=== PATIENT | male | born 1940 | race Caucasian/White ===

== ENCOUNTER 2019-10-09 10:12 | Inpatient (IN) ==
[2019-10-09] MEDS ORDERED: ALBUTEROL/IPRATROPIUM 3 ML NEB RESP TX STA (10:35)
[2019-10-09 10:43] LABS: Basophils % 0.2 % (0.0-0.8); Hematocrit 37.4 VOL% (42.0-52.0); Hemoglobin 12.3 GM/DL (14.0-18.0); Immature Granulocytes % 1.2 %; Lymphocytes # 0.9 10*3/uL (1.4-4.0); Lymphocytes % 10.4 % (21.2-54.2); Mean Corpuscular HGB Conc 32.9 GM/DL (32-36); Mean Corpuscular Volume 95.4 FL (87-102); Mean Platelet Volume 11.9 FL (9.6-12.0); Monocytes % 9.3 % (1.7-12.7); Neutrophils % 78.9 % (38.7-73.9); Platelet Count 110 T/CUMM (130-400); Red Blood Count 3.92 MC/CUMM (3.8-5.5); Red Cell Distribution Width 14.4 % (9.3-17.3); White Blood Count 8.2 T/CUMM (4-12)
[2019-10-09 11:14] LABS: Albumin 2.8 G/DL (3.4-5.0); Bilirubin,Total 0.5 MG/DL (0.2-1.0); Calcium 8.1 MG/DL (8.5-10.1); Osmolality,Calculated 283.5 MOS/KG (273-304); Total Protein 5.9 G/DL (6.4-8.3)
[2019-10-09] MEDS ORDERED: cefTRIAXone 1,000 MG in SODIUM CHLORIDE 0.9% 100 ML IV STA (11:33)
[2019-10-09] MEDS ORDERED: GLUCAGON 1 MG VIAL IM PRN (12:28)
[2019-10-09] MEDS ORDERED: ACETAMINOPHEN 325 MG TABLET PO PRN (12:28)
[2019-10-09] MEDS ORDERED: DEXTROSE 50% 25 GM/50 ML VIAL IV PRN (12:28)
[2019-10-09] MEDS ORDERED: ONDANSETRON 4 MG/2 ML VIAL IV PRN (12:28)
[2019-10-09] MEDS ORDERED: ALBUTEROL/IPRATROPIUM 3 ML NEB RESP TX PRN (12:31)
[2019-10-09] MEDS: ALBUTEROL 2.5 MG/3 ML NEB RESP TX SCH ×3 (12:45→23:27)
[2019-10-09] MEDS ORDERED: BENZONATATE 100 MG CAPSULE PO PRN (13:58)
[2019-10-09] MEDS: methylPREDNISolone SOD SUC 40 MG/1 ML VIAL IV SCH (14:58)
[2019-10-09] MEDS: LEVOFLOXACIN INJ 750 MG in PREMIX 1 EACH IV SCH (15:02)
[2019-10-09] MEDS ORDERED: FUROSEMIDE 80 MG TABLET PO ONE (16:01)
[2019-10-09] MEDS: INSULIN REGULAR 100 UNIT/ML SUBCUT SCH ×2 (16:25→20:40)
[2019-10-09] MEDS ORDERED: ZALEPLON 5 MG CAPSULE PO PRN (18:11)
[2019-10-09] MEDS: DABIGATRAN 75 MG CAPSULE PO SCH (20:41)
[2019-10-09] MEDS: POTASSIUM CHLORIDE 20 MEQ TABLET PO SCH (20:41)
[2019-10-09] MEDS: TAMSULOSIN 0.4 MG CAPSULE PO SCH (20:41)
[2019-10-09] MEDS: GABAPENTIN 100 MG CAPSULE PO SCH (20:41)
[2019-10-09] MEDS: SIMVASTATIN 20 MG TABLET PO SCH (20:41)
[2019-10-09] MEDS: carvediloL 25 MG TABLET PO SCH (20:41)
[2019-10-09] MEDS: MAGNESIUM OXIDE 400 MG TABLET PO SCH (20:41)
[2019-10-10] MEDS: methylPREDNISolone SOD SUC 40 MG/1 ML VIAL IV SCH ×2 (01:59→15:31)
[2019-10-10 05:53] LABS: Hemoglobin 13.1 GM/DL (14.0-18.0); Immature Granulocytes % 0.9 %; Immature Granulocytes Absolute 0.07 #; Lymphocytes # 0.8 10*3/uL (1.4-4.0); Lymphocytes % 11.2 % (21.2-54.2); Mean Corpuscular HGB Conc 32.8 GM/DL (32-36); Mean Corpuscular Volume 95.9 FL (87-102); Mean Platelet Volume 11.8 FL (9.6-12.0); Monocytes % 5.6 % (1.7-12.7); Neutrophils % 82.3 % (38.7-73.9); Platelet Count 123 T/CUMM (130-400); Red Blood Count 4.17 MC/CUMM (3.8-5.5); Red Cell Distribution Width 14.3 % (9.3-17.3); White Blood Count 7.5 T/CUMM (4-12)
[2019-10-10] MEDS: ALBUTEROL 2.5 MG/3 ML NEB RESP TX SCH ×5 (07:13→23:52)
[2019-10-10] MEDS: INSULIN REGULAR 100 UNIT/ML SUBCUT SCH ×4 (08:01→21:34)
[2019-10-10] MEDS ORDERED: FUROSEMIDE 80 MG TABLET PO SCH (09:00)
[2019-10-10] MEDS: CALCIUM (CARBONATE)/VITAMIN D 600 MG-400 UNIT TABLET PO SCH ×2 (09:23→14:29)
[2019-10-10] MEDS: DABIGATRAN 75 MG CAPSULE PO SCH ×2 (09:23→21:33)
[2019-10-10] MEDS: carvediloL 25 MG TABLET PO SCH ×2 (09:23→21:34)
[2019-10-10] MEDS: POTASSIUM CHLORIDE 20 MEQ TABLET PO SCH ×2 (09:24→21:34)
[2019-10-10] MEDS: PANTOPRAZOLE 40 MG TABLET PO SCH (09:24)
[2019-10-10] MEDS: FUROSEMIDE 80 MG TABLET PO SCH ×2 (09:24→14:23)
[2019-10-10] MEDS: MAGNESIUM OXIDE 400 MG TABLET PO SCH ×2 (10:00→21:33)
[2019-10-10] MEDS: ASPIRIN 325 MG TABLET PO SCH (12:13)
[2019-10-10] MEDS: MULTIVITAMIN (INTRINSIC) CAPSULE PO SCH (12:13)
[2019-10-10 13:00] LABS: Apearance,Urine CLEAR (Clear); Bilirubin,Urine Negative (Negative); Blood, Urine Small mg/dL (Negative); Glucose,Urine (UA) Negative (Negative); Ketones,Urine Negative (Negative); Mucus,Urine Occasional /LPF (Occasional); Nitrite,Urine Negative (Negative); Protein,Urine Negative; RBC,Urine 8 /HPF (0-4); Urine Color Straw (Yellow); Urine Specific Gravity 1.009 (1.001-1.035); Urine Urobilinogen < 2.0 EU/DL (0.2-1.0); WBC,Urine 1 /HPF (0-6)
[2019-10-10] MEDS: GABAPENTIN 100 MG CAPSULE PO SCH (21:34)
[2019-10-10] MEDS: SIMVASTATIN 20 MG TABLET PO SCH (21:34)
[2019-10-10] MEDS: TAMSULOSIN 0.4 MG CAPSULE PO SCH (21:34)
[2019-10-11] MEDS: methylPREDNISolone SOD SUC 40 MG/1 ML VIAL IV SCH (02:59)
[2019-10-11] MEDS: ALBUTEROL 2.5 MG/3 ML NEB RESP TX SCH ×6 (03:36→22:32)
[2019-10-11 06:15] LABS: Calcium 9.1 MG/DL (8.5-10.1)
[2019-10-11] MEDS: CALCIUM (CARBONATE)/VITAMIN D 600 MG-400 UNIT TABLET PO SCH ×2 (08:28→12:47)
[2019-10-11] MEDS: MAGNESIUM OXIDE 400 MG TABLET PO SCH ×2 (08:28→21:32)
[2019-10-11] MEDS: PANTOPRAZOLE 40 MG TABLET PO SCH (08:29)
[2019-10-11] MEDS: INSULIN REGULAR 100 UNIT/ML SUBCUT SCH ×4 (08:29→21:36)
[2019-10-11] MEDS: DABIGATRAN 75 MG CAPSULE PO SCH ×2 (08:29→21:32)
[2019-10-11] MEDS: predniSONE 10 MG TABLET PO SCH ×2 (08:29→21:33)
[2019-10-11] MEDS: FUROSEMIDE 80 MG TABLET PO SCH ×2 (08:29→12:47)
[2019-10-11] MEDS: POTASSIUM CHLORIDE 20 MEQ TABLET PO SCH ×2 (08:29→21:32)
[2019-10-11] MEDS: carvediloL 25 MG TABLET PO SCH ×2 (08:29→21:32)
[2019-10-11] MEDS: ASPIRIN 325 MG TABLET PO SCH (12:47)
[2019-10-11] MEDS: MULTIVITAMIN (INTRINSIC) CAPSULE PO SCH (12:47)
[2019-10-11] MEDS: LEVOFLOXACIN INJ 750 MG in PREMIX 1 EACH IV SCH (14:37)
[2019-10-11] MEDS: TAMSULOSIN 0.4 MG CAPSULE PO SCH (21:32)
[2019-10-11] MEDS: GABAPENTIN 100 MG CAPSULE PO SCH (21:33)
[2019-10-11] MEDS: SIMVASTATIN 20 MG TABLET PO SCH (21:33)
[2019-10-12] MEDS: ALBUTEROL 2.5 MG/3 ML NEB RESP TX SCH ×2 (02:30→07:12)
[2019-10-12 07:48] VITALS: BP 119/72
[2019-10-12] MEDS: INSULIN REGULAR 100 UNIT/ML SUBCUT SCH (10:00)
[2019-10-12] MEDS: CALCIUM (CARBONATE)/VITAMIN D 600 MG-400 UNIT TABLET PO SCH (10:01)
[2019-10-12] MEDS: carvediloL 25 MG TABLET PO SCH (10:01)
[2019-10-12] MEDS: POTASSIUM CHLORIDE 20 MEQ TABLET PO SCH (10:01)
[2019-10-12] MEDS: MAGNESIUM OXIDE 400 MG TABLET PO SCH (10:01)
[2019-10-12] MEDS: FUROSEMIDE 80 MG TABLET PO SCH (10:01)
[2019-10-12] MEDS: DABIGATRAN 75 MG CAPSULE PO SCH (10:02)
[2019-10-12] MEDS: PANTOPRAZOLE 40 MG TABLET PO SCH (10:02)
[2019-10-12] MEDS: predniSONE 10 MG TABLET PO SCH (10:02)
== END 2019-10-12 09:56 | disposition home health service (06) | DRG 194 ==
LOC: N.ED 10:12 → N.EDINP 10:12 → SUATTDRO 12:28 → N.EDINP 13:52 → N.2W 14:18 → N.2E 10-10 18:16
PROVIDERS: ADMIT Internal Medicine; ATTEND Internal Medicine Cardiovascular Disease

== ENCOUNTER 2021-05-17 10:01 | Inpatient (IN) ==
[2021-05-17] MEDS ORDERED: FUROSEMIDE 100 MG/10 ML VIAL IV STA (10:40)
[2021-05-17] MEDS ORDERED: MORPHINE 4 MG/1 ML VIAL IV STA (10:40)
[2021-05-17] MEDS ORDERED: DEXAMETHASONE 4 MG/1 ML VIAL IV STA (10:41)
[2021-05-17 11:31] LABS: Basophils % 0.3 % (0.0-0.8); Hematocrit 36.6 VOL% (42.0-52.0); Hemoglobin 12.5 GM/DL (14.0-18.0); Immature Granulocytes % 0.7 %; Immature Granulocytes Absolute 0.08 #; Lymphocytes # 1.2 10*3/uL (1.4-4.0); Lymphocytes % 10.4 % (21.2-54.2); Mean Corpuscular HGB Conc 34.2 GM/DL (32-36); Mean Corpuscular Volume 87.6 FL (87-102); Mean Platelet Volume 10.6 FL (9.6-12.0); Monocytes % 8.6 % (1.7-12.7); Platelet Count 255 T/CUMM (130-400); Red Blood Count 4.18 MC/CUMM (3.8-5.5); Red Cell Distribution Width 13.1 % (9.3-17.3); White Blood Count 11.8 T/CUMM (4-12)
[2021-05-17 12:00] LABS: Uric Acid 13.8 MG/DL (3.5-7.2)
[2021-05-17 12:50] LABS: Albumin 2.7 G/DL (3.4-5.0); Bilirubin,Total 0.9 MG/DL (0.2-1.0); Calcium 9.3 MG/DL (8.5-10.1); Osmolality,Calculated 274.1 MOS/KG (273-304); Potassium 2.8 MMOL/L (3.5-5.1); Total Protein 6.7 G/DL (6.4-8.2)
[2021-05-17] MEDS ORDERED: COLCHICINE 0.6 MG CAPSULE PO STA (13:37)
[2021-05-17] MEDS ORDERED: ALBUMIN 25% 25 GM/100 ML VIAL IV ONE (14:17)
[2021-05-17] MEDS: allopurinoL 100 MG TABLET PO SCH (14:35)
[2021-05-17] MEDS ORDERED: ONDANSETRON 4 MG/2 ML VIAL IV PRN (14:44)
[2021-05-17] MEDS ORDERED: ACETAMINOPHEN 325 MG TABLET PO PRN (14:44)
[2021-05-17] MEDS: POTASSIUM CHLORIDE 20 MEQ TABLET PO PRN ×4 (17:17→23:24)
[2021-05-17] MEDS: SODIUM CHLORIDE 0.9% 1,000 ML IV SCH (18:12)
[2021-05-17] MEDS: GABAPENTIN 100 MG CAPSULE PO SCH (20:56)
[2021-05-17] MEDS: DABIGATRAN 75 MG CAPSULE PO SCH (20:56)
[2021-05-17] MEDS: MAGNESIUM OXIDE 400 MG TABLET PO SCH (20:56)
[2021-05-17] MEDS: SIMVASTATIN 20 MG TABLET PO SCH (20:56)
[2021-05-17] MEDS: DOCUSATE SODIUM 100 MG CAPSULE PO SCH (20:56)
[2021-05-17] MEDS: TAMSULOSIN 0.4 MG CAPSULE PO SCH (20:56)
[2021-05-17] MEDS ORDERED: NON-FORMULARY MEDICATION (Omeprazole 20 MG capsule,delayed release(DR/EC)) PO SCH (21:00)
[2021-05-18 04:49] LABS: Basophils % 0.2 % (0.0-0.8); Hematocrit 33.2 VOL% (42.0-52.0); Hemoglobin 11.2 GM/DL (14.0-18.0); Immature Granulocytes % 0.7 %; Immature Granulocytes Absolute 0.08 #; Lymphocytes % 9.3 % (21.2-54.2); Mean Corpuscular HGB Conc 33.7 GM/DL (32-36); Mean Corpuscular Volume 88.3 FL (87-102); Mean Platelet Volume 11.2 FL (9.6-12.0); Monocytes % 6.5 % (1.7-12.7); Neutrophils % 83.3 % (38.7-73.9); Platelet Count 261 T/CUMM (130-400); Red Blood Count 3.76 MC/CUMM (3.8-5.5); Red Cell Distribution Width 12.8 % (9.3-17.3); White Blood Count 10.8 T/CUMM (4-12)
[2021-05-18 05:11] LABS: Calcium 9.3 MG/DL (8.5-10.1); Osmolality,Calculated 285.9 MOS/KG (273-304); Potassium 2.9 MMOL/L (3.5-5.1)
[2021-05-18] MEDS ORDERED: allopurinoL 100 MG TABLET PO SCH (09:00)
[2021-05-18] MEDS: DABIGATRAN 75 MG CAPSULE PO SCH ×2 (09:08→21:11)
[2021-05-18] MEDS: MULTIVITAMIN (INTRINSIC) CAPSULE PO SCH (09:08)
[2021-05-18] MEDS: MAGNESIUM OXIDE 400 MG TABLET PO SCH ×2 (09:08→21:12)
[2021-05-18] MEDS: POTASSIUM CHLORIDE 20 MEQ TABLET PO SCH (09:08)
[2021-05-18] MEDS: COLCHICINE 0.6 MG CAPSULE PO SCH (09:08)
[2021-05-18] MEDS: allopurinoL 100 MG TABLET PO SCH (09:09)
[2021-05-18] MEDS: CALCIUM (CARBONATE)/VITAMIN D 600 MG-400 UNIT TABLET PO SCH (09:09)
[2021-05-18] MEDS: PANTOPRAZOLE 40 MG TABLET PO SCH (09:09)
[2021-05-18] MEDS: GLIMEPIRIDE 2 MG TABLET PO SCH (09:09)
[2021-05-18] MEDS: DOCUSATE SODIUM 100 MG CAPSULE PO SCH ×2 (09:09→21:12)
[2021-05-18] MEDS: ASPIRIN EC 81 MG TABLET PO SCH (09:09)
[2021-05-18] MEDS: GABAPENTIN 100 MG CAPSULE PO SCH ×2 (09:09→21:12)
[2021-05-18] MEDS: METOPROLOL SUCCINATE XL 100 MG TABLET PO SCH (09:09)
[2021-05-18] MEDS: POTASSIUM CHLORIDE 20 MEQ TABLET PO PRN ×3 (10:15→21:12)
[2021-05-18] MEDS: SODIUM CHLORIDE 0.9% 1,000 ML IV SCH (15:40)
[2021-05-18] MEDS: SIMVASTATIN 20 MG TABLET PO SCH (21:12)
[2021-05-18] MEDS: TAMSULOSIN 0.4 MG CAPSULE PO SCH (21:12)
[2021-05-19 04:45] LABS: Basophils % 0.3 % (0.0-0.8); Eosinophils % 0.2 % (0.00-10.9); Hematocrit 31.6 VOL% (42.0-52.0); Hemoglobin 10.7 GM/DL (14.0-18.0); Immature Granulocytes % 0.9 %; Lymphocytes # 2.4 10*3/uL (1.4-4.0); Lymphocytes % 22.4 % (21.2-54.2); Mean Corpuscular HGB Conc 33.9 GM/DL (32-36); Mean Corpuscular Volume 88.5 FL (87-102); Monocytes % 8.9 % (1.7-12.7); Neutrophils % 67.3 % (38.7-73.9); Platelet Count 249 T/CUMM (130-400); Red Blood Count 3.57 MC/CUMM (3.8-5.5); Red Cell Distribution Width 12.9 % (9.3-17.3); White Blood Count 10.9 T/CUMM (4-12)
[2021-05-19 05:14] LABS: Calcium 8.9 MG/DL (8.5-10.1); Osmolality,Calculated 286.1 MOS/KG (273-304)
[2021-05-19 07:24] VITALS: BP 100/69
[2021-05-19] MEDS: CALCIUM (CARBONATE)/VITAMIN D 600 MG-400 UNIT TABLET PO SCH (08:23)
[2021-05-19] MEDS: GABAPENTIN 100 MG CAPSULE PO SCH (08:24)
[2021-05-19] MEDS: MULTIVITAMIN (INTRINSIC) CAPSULE PO SCH (08:24)
[2021-05-19] MEDS: DABIGATRAN 75 MG CAPSULE PO SCH (08:24)
[2021-05-19] MEDS: ASPIRIN EC 81 MG TABLET PO SCH (08:24)
[2021-05-19] MEDS: COLCHICINE 0.6 MG CAPSULE PO SCH (08:24)
[2021-05-19] MEDS: MAGNESIUM OXIDE 400 MG TABLET PO SCH (08:24)
[2021-05-19] MEDS: DOCUSATE SODIUM 100 MG CAPSULE PO SCH (08:24)
[2021-05-19] MEDS: GLIMEPIRIDE 2 MG TABLET PO SCH (08:24)
[2021-05-19] MEDS: POTASSIUM CHLORIDE 20 MEQ TABLET PO SCH (08:24)
[2021-05-19] MEDS: allopurinoL 100 MG TABLET PO SCH (08:24)
[2021-05-19] MEDS: METOPROLOL SUCCINATE XL 100 MG TABLET PO SCH (08:25)
[2021-05-19] MEDS: PANTOPRAZOLE 40 MG TABLET PO SCH (08:25)
== END 2021-05-19 09:38 | disposition home or self-care (01) | DRG 554 ==
LOC: EDBD → EDUNIT# → N.ED 10:01 → N.EDINP 14:44 → N.5E 15:55
PROVIDERS: ADMIT Family Medicine; ATTEND Family Medicine

== ENCOUNTER 2022-05-21 10:09 | Inpatient (IN) ==
[2022-05-21] MEDS ORDERED: SODIUM CHLORIDE 0.9% 500 ML IV STA (10:30)
[2022-05-21 10:44] LABS: Basophils % 0.3 % (0.0-0.8); Hematocrit 38.7 VOL% (42.0-52.0); Hemoglobin 13.4 GM/DL (14.0-18.0); Immature Granulocytes % 0.6 %; Immature Granulocytes Absolute 0.04 #; Lymphocytes # 0.4 10*3/uL (1.4-4.0); Mean Corpuscular HGB Conc 34.6 GM/DL (32-36); Mean Corpuscular Volume 89.4 FL (87-102); Mean Platelet Volume 12.4 FL (9.6-12.0); Monocytes # 0.7 10*3/uL (0.11-0.8); Monocytes % 11.7 % (1.7-12.7); Neutrophils % 81.4 % (38.7-73.9); Platelet Count 115 T/CUMM (130-400); Red Blood Count 4.33 MC/CUMM (3.8-5.5); Red Cell Distribution Width 12.8 % (9.3-17.3); White Blood Count 6.4 T/CUMM (4-12)
[2022-05-21 10:48] LABS: Albumin 2.7 G/DL (3.4-5.0); Bilirubin,Total 0.7 MG/DL (0.20-1.00); Calcium 8.9 MG/DL (8.5-10.1); Osmolality,Calculated 274.8 MOS/KG (273-304); Total Protein 6.4 G/DL (6.4-8.2)
[2022-05-21 10:49] LABS: PT Patient Result 10.6 SECS (10.5-12.0); Partial Thromboplastin Time 28.2 SECS (23.7-32.9)
[2022-05-21 10:51] LABS: Potassium 2.5 MMOL/L (3.5-5.1)
[2022-05-21] MEDS: POTASSIUM CHLORIDE RIDER 10 MEQ/100 ML PREMIX IV PRN ×2 (12:04→13:07)
[2022-05-21 12:22] LABS: Bacteria,Urine Occasional /HPF (Few); RBC,Urine 124 /HPF (0-4); Squamous Epithelial Cell,Urine Occasional /HPF (0-10)
[2022-05-21 12:23] LABS: Bilirubin,Urine Negative (Negative); Blood, Urine Large mg/dL (Negative); Glucose,Urine (UA) Negative (Negative); Ketones,Urine Negative (Negative); Nitrite,Urine Negative (Negative); Protein,Urine 100 mg/dL (Negative); Urine Appearance Clear (Clear); Urine Color Yellow (Yellow); Urine Urobilinogen 0.2 eU/dL (<2.0)
[2022-05-21] MEDS ORDERED: cefTRIAXone 1,000 MG in SODIUM CHLORIDE 0.9% 100 ML IV STA (15:13)
[2022-05-21] MEDS ORDERED: ONDANSETRON 4 MG/2 ML VIAL IV PRN (15:34)
[2022-05-21] MEDS ORDERED: ACETAMINOPHEN 325 MG TABLET PO PRN (15:34)
[2022-05-21] MEDS: SODIUM CHLORIDE 0.9% 1,000 ML IV SCH (16:34)
[2022-05-21] MEDS ORDERED: metOLazone 5 MG TABLET PO PRN (16:53)
[2022-05-21] MEDS ORDERED: GLUCAGON 1 MG VIAL IM PRN (16:55)
[2022-05-21] MEDS ORDERED: DEXTROSE 10% 250 ML BAG IV PRN (17:09)
[2022-05-21] MEDS ORDERED: NON-FORMULARY MEDICATION (Omeprazole 20 MG capsule,delayed release(DR/EC)) PO SCH (21:00)
[2022-05-21] MEDS: TAMSULOSIN 0.4 MG CAPSULE PO SCH (21:30)
[2022-05-21] MEDS: DOCUSATE SODIUM 100 MG CAPSULE PO SCH (21:30)
[2022-05-21] MEDS: INSULIN REGULAR 100 UNIT/ML SUBCUT SCH (21:30)
[2022-05-21] MEDS: PRIMIDONE 50 MG TABLET PO SCH (21:30)
[2022-05-21] MEDS: SIMVASTATIN 20 MG TABLET PO SCH (21:30)
[2022-05-21] MEDS: GABAPENTIN 100 MG CAPSULE PO SCH (21:30)
[2022-05-22] MEDS: SODIUM CHLORIDE 0.9% 1,000 ML IV SCH ×2 (00:30→14:02)
[2022-05-22 06:26] LABS: Calcium 8.5 MG/DL (8.5-10.1); Osmolality,Calculated 271.5 MOS/KG (273-304)
[2022-05-22 06:30] LABS: Potassium 2.3 MMOL/L (3.5-5.1)
[2022-05-22] MEDS: POTASSIUM CHLORIDE RIDER 10 MEQ/100 ML PREMIX IV PRN ×8 (06:43→23:20)
[2022-05-22] MEDS: INSULIN REGULAR 100 UNIT/ML SUBCUT SCH ×4 (07:58→21:19)
[2022-05-22] MEDS ORDERED: FUROSEMIDE 40 MG/4 ML VIAL IV SCH (09:00)
[2022-05-22] MEDS ORDERED: POTASSIUM CHLORIDE 20 MEQ TABLET PO SCH (09:00)
[2022-05-22] MEDS ORDERED: MAGNESIUM OXIDE 400 MG TABLET PO SCH (09:00)
[2022-05-22] MEDS: PANTOPRAZOLE 40 MG TABLET PO SCH (10:00)
[2022-05-22] MEDS: GABAPENTIN 100 MG CAPSULE PO SCH ×2 (10:00→21:22)
[2022-05-22] MEDS: METOPROLOL SUCCINATE XL 100 MG TABLET PO SCH (10:00)
[2022-05-22] MEDS: PRIMIDONE 50 MG TABLET PO SCH ×2 (10:01→21:22)
[2022-05-22] MEDS: DOCUSATE SODIUM 100 MG CAPSULE PO SCH ×2 (10:02→21:22)
[2022-05-22] MEDS ORDERED: POTASSIUM CHLORIDE 20 MEQ TABLET PO ONE (11:00)
[2022-05-22] MEDS: ASPIRIN EC 81 MG TABLET PO SCH (15:01)
[2022-05-22] MEDS: cefTRIAXone 1,000 MG in SODIUM CHLORIDE 0.9% 100 ML IV SCH (15:03)
[2022-05-22] MEDS: DILTIAZEM 60 MG TABLET PO SCH ×2 (18:22→21:21)
[2022-05-22] MEDS: TAMSULOSIN 0.4 MG CAPSULE PO SCH (21:22)
[2022-05-22] MEDS: SIMVASTATIN 20 MG TABLET PO SCH (21:22)
[2022-05-22] MEDS: MELATONIN 3 MG TABLET PO PRN (22:37)
[2022-05-23] MEDS: SODIUM CHLORIDE 0.9% 1,000 ML IV SCH ×3 (02:24→18:32)
[2022-05-23 05:57] LABS: Basophils % 0.5 % (0.0-0.8); Eosinophils % 0.1 % (0.00-10.9); Hematocrit 33.4 VOL% (42.0-52.0); Immature Granulocytes % 0.4 %; Immature Granulocytes Absolute 0.03 #; Lymphocytes # 1.2 10*3/uL (1.4-4.0); Mean Corpuscular HGB Conc 34.1 GM/DL (32-36); Mean Platelet Volume 11.9 FL (9.6-12.0); Monocytes # 1.2 10*3/uL (0.11-0.8); Monocytes % 16.5 % (1.7-12.7); Neutrophils % 66.5 % (38.7-73.9); Red Cell Distribution Width 13.3 % (9.3-17.3); White Blood Count 7.3 T/CUMM (4-12)
[2022-05-23 06:00] LABS: Hemoglobin 11.4 GM/DL (14.0-18.0); Platelet Count 99 T/CUMM (130-400); Red Blood Count 3.63 MC/CUMM (3.8-5.5)
[2022-05-23 06:18] LABS: Atypical Lymphocytes Few; Band Neutrophils 8 % (0-10); Lymphocytes 21 % (20-55); Total Cells Counted 100
[2022-05-23 06:29] LABS: Albumin 2.4 G/DL (3.4-5.0); Bilirubin,Total 0.5 MG/DL (0.20-1.00); Calcium 8.2 MG/DL (8.5-10.1); Osmolality,Calculated 268.7 MOS/KG (273-304); Potassium 3.1 MMOL/L (3.5-5.1); Total Protein 5.3 G/DL (6.4-8.2)
[2022-05-23] MEDS ORDERED: MAGNESIUM SULF RIDER 2 GM/50 ML PREMIX IV ONE (07:12)
[2022-05-23] MEDS ORDERED: POTASSIUM CHLORIDE 20 MEQ TABLET PO ONE ×3 (08:30→10:00)
[2022-05-23] MEDS ORDERED: POTASSIUM CHLORIDE 20 MEQ TABLET PO SCH (09:00)
[2022-05-23] MEDS: MAGNESIUM OXIDE 400 MG TABLET PO SCH ×2 (09:15→22:28)
[2022-05-23] MEDS: PRIMIDONE 50 MG TABLET PO SCH ×2 (09:15→22:22)
[2022-05-23] MEDS: POTASSIUM CHLORIDE 20 MEQ TABLET PO SCH ×2 (09:16→22:27)
[2022-05-23] MEDS: ASCORBIC ACID 500 MG TABLET PO SCH ×2 (09:16→22:23)
[2022-05-23] MEDS: METOPROLOL SUCCINATE XL 100 MG TABLET PO SCH (09:17)
[2022-05-23] MEDS: GABAPENTIN 100 MG CAPSULE PO SCH ×2 (09:17→22:23)
[2022-05-23] MEDS: DILTIAZEM CD 120 MG CAPSULE PO SCH ×2 (09:17→22:22)
[2022-05-23] MEDS: DOCUSATE SODIUM 100 MG CAPSULE PO SCH ×2 (09:17→22:22)
[2022-05-23] MEDS: INSULIN REGULAR 100 UNIT/ML SUBCUT SCH ×4 (09:18→22:24)
[2022-05-23] MEDS: PANTOPRAZOLE 40 MG TABLET PO SCH (13:24)
[2022-05-23] MEDS: ASPIRIN EC 81 MG TABLET PO SCH (13:33)
[2022-05-23] MEDS: cefTRIAXone 1,000 MG in SODIUM CHLORIDE 0.9% 100 ML IV SCH (16:26)
[2022-05-23] MEDS: MELATONIN 3 MG TABLET PO PRN (22:21)
[2022-05-23] MEDS: TAMSULOSIN 0.4 MG CAPSULE PO SCH (22:22)
[2022-05-23] MEDS: SIMVASTATIN 20 MG TABLET PO SCH (22:24)
[2022-05-24] MEDS: SODIUM CHLORIDE 0.9% 1,000 ML IV SCH (04:19)
[2022-05-24 05:22] LABS: Basophils % 0.3 % (0.0-0.8); Eosinophils % 0.2 % (0.00-10.9); Hematocrit 32.7 VOL% (42.0-52.0); Hemoglobin 11.2 GM/DL (14.0-18.0); Immature Granulocytes % 0.7 %; Immature Granulocytes Absolute 0.06 #; Lymphocytes # 1.2 10*3/uL (1.4-4.0); Mean Corpuscular HGB Conc 34.3 GM/DL (32-36); Mean Corpuscular Volume 92.6 FL (87-102); Mean Platelet Volume 12.8 FL (9.6-12.0); Monocytes # 1.5 10*3/uL (0.11-0.8); Neutrophils % 69.8 % (38.7-73.9); Platelet Count 102 T/CUMM (130-400); Red Blood Count 3.53 MC/CUMM (3.8-5.5); Red Cell Distribution Width 13.4 % (9.3-17.3); White Blood Count 9.1 T/CUMM (4-12)
[2022-05-24 05:37] LABS: Calcium 8.1 MG/DL (8.5-10.1); Osmolality,Calculated 265.7 MOS/KG (273-304); Potassium 3.7 MMOL/L (3.5-5.1)
[2022-05-24 05:44] LABS: Band Neutrophils 3 % (0-10); Lymphocytes 13 % (20-55); Microcytosis Slight; Platelet Estimate Decreased; Total Cells Counted 100
[2022-05-24] MEDS: INSULIN REGULAR 100 UNIT/ML SUBCUT SCH ×4 (07:50→20:53)
[2022-05-24] MEDS: METOPROLOL SUCCINATE XL 100 MG TABLET PO SCH (08:37)
[2022-05-24] MEDS: PRIMIDONE 50 MG TABLET PO SCH ×2 (08:39→20:52)
[2022-05-24] MEDS: GABAPENTIN 100 MG CAPSULE PO SCH ×2 (08:41→20:39)
[2022-05-24] MEDS: PANTOPRAZOLE 40 MG TABLET PO SCH (08:42)
[2022-05-24] MEDS: DILTIAZEM CD 120 MG CAPSULE PO SCH ×2 (08:43→20:38)
[2022-05-24] MEDS: DOCUSATE SODIUM 100 MG CAPSULE PO SCH ×2 (08:44→20:39)
[2022-05-24] MEDS: POTASSIUM CHLORIDE 20 MEQ TABLET PO SCH ×2 (08:45→20:39)
[2022-05-24] MEDS: MAGNESIUM OXIDE 400 MG TABLET PO SCH ×2 (08:45→20:38)
[2022-05-24] MEDS: ASCORBIC ACID 500 MG TABLET PO SCH ×2 (08:46→20:38)
[2022-05-24] MEDS: ENOXAPARIN 100 MG/ML SYRINGE SUBCUT SCH ×2 (08:51→20:41)
[2022-05-24] MEDS ORDERED: FUROSEMIDE 80 MG TABLET PO SCH (09:00)
[2022-05-24] MEDS: ALBUTEROL 0.63 MG/3 ML NEB RESP TX SCH ×3 (10:45→19:05)
[2022-05-24] MEDS ORDERED: DEXTROMETHORPHAN ER 6 MG/ML 90 ML/BOTTLE PO PRN (12:36)
[2022-05-24] MEDS: ASPIRIN EC 81 MG TABLET PO SCH (14:22)
[2022-05-24] MEDS ORDERED: METOPROLOL TARTRATE 5 MG/5 ML VIAL IV ONE (15:25)
[2022-05-24] MEDS: cefTRIAXone 1,000 MG in SODIUM CHLORIDE 0.9% 100 ML IV SCH (15:59)
[2022-05-24] MEDS: FUROSEMIDE 80 MG TABLET PO SCH (16:00)
[2022-05-24] MEDS ORDERED: FUROSEMIDE 40 MG/4 ML VIAL IV ONE (20:02)
[2022-05-24] MEDS: SIMVASTATIN 20 MG TABLET PO SCH (20:39)
[2022-05-24] MEDS: TAMSULOSIN 0.4 MG CAPSULE PO SCH (20:39)
[2022-05-24] MEDS: MORPHINE 2 MG/1 ML SYRINGE IV PRN (20:41)
[2022-05-25] MEDS: ALBUTEROL 0.63 MG/3 ML NEB RESP TX SCH ×4 (00:20→19:40)
[2022-05-25] MEDS: SODIUM CHLORIDE 0.9% 1,000 ML IV SCH (02:29)
[2022-05-25 05:17] LABS: Calcium 8.4 MG/DL (8.5-10.1); Osmolality,Calculated 261.9 MOS/KG (273-304); Potassium 3.5 MMOL/L (3.5-5.1)
[2022-05-25] MEDS: INSULIN REGULAR 100 UNIT/ML SUBCUT SCH ×4 (07:03→20:42)
[2022-05-25] MEDS ORDERED: DIGOXIN 0.5 MG/2 ML AMP IV ONE (08:39)
[2022-05-25] MEDS ORDERED: MAGNESIUM SULF RIDER 4 GM/100 ML PREMIX IV ONE (08:39)
[2022-05-25 08:56] LABS: Basophils % 0.4 % (0.0-0.8); Eosinophils % 0.3 % (0.00-10.9); Hematocrit 36.1 VOL% (42.0-52.0); Hemoglobin 12.2 GM/DL (14.0-18.0); Immature Granulocytes % 0.8 %; Immature Granulocytes Absolute 0.09 #; Lymphocytes # 1.5 10*3/uL (1.4-4.0); Lymphocytes % 13.1 % (21.2-54.2); Mean Corpuscular HGB Conc 33.8 GM/DL (32-36); Mean Corpuscular Volume 92.3 FL (87-102); Mean Platelet Volume 12.7 FL (9.6-12.0); Monocytes # 1.9 10*3/uL (0.11-0.8); Neutrophils % 68.4 % (38.7-73.9); Platelet Count 108 T/CUMM (130-400); Red Blood Count 3.91 MC/CUMM (3.8-5.5); Red Cell Distribution Width 13.8 % (9.3-17.3); White Blood Count 11.2 T/CUMM (4-12)
[2022-05-25 09:17] LABS: Lymphocytes 12 % (20-55); Total Cells Counted 100
[2022-05-25] MEDS: PRIMIDONE 50 MG TABLET PO SCH ×2 (09:18→20:41)
[2022-05-25] MEDS: APIXABAN 2.5 MG TABLET PO SCH ×2 (09:32→20:41)
[2022-05-25] MEDS: PANTOPRAZOLE 40 MG TABLET PO SCH (09:32)
[2022-05-25] MEDS: DOCUSATE SODIUM 100 MG CAPSULE PO SCH ×2 (09:33→20:41)
[2022-05-25] MEDS: GABAPENTIN 100 MG CAPSULE PO SCH ×2 (09:33→20:42)
[2022-05-25] MEDS: POTASSIUM CHLORIDE 20 MEQ TABLET PO SCH ×2 (09:34→20:41)
[2022-05-25] MEDS: MAGNESIUM OXIDE 400 MG TABLET PO SCH ×2 (09:38→20:42)
[2022-05-25] MEDS: FUROSEMIDE 80 MG TABLET PO SCH ×2 (09:38→16:39)
[2022-05-25] MEDS: DILTIAZEM CD 120 MG CAPSULE PO SCH ×2 (09:39→20:42)
[2022-05-25] MEDS: METOPROLOL SUCCINATE XL 100 MG TABLET PO SCH (09:40)
[2022-05-25] MEDS: ASCORBIC ACID 500 MG TABLET PO SCH ×2 (09:40→20:41)
[2022-05-25] MEDS: CLINDAMYCIN INJ 600 MG/50 ML PREMIX IV SCH ×2 (09:46→18:27)
[2022-05-25] MEDS: ASPIRIN EC 81 MG TABLET PO SCH (13:43)
[2022-05-25] MEDS: cefTRIAXone 1,000 MG in SODIUM CHLORIDE 0.9% 100 ML IV SCH (16:38)
[2022-05-25] MEDS: SIMVASTATIN 20 MG TABLET PO SCH (20:41)
[2022-05-25] MEDS: TAMSULOSIN 0.4 MG CAPSULE PO SCH (20:42)
[2022-05-26] MEDS: CLINDAMYCIN INJ 600 MG/50 ML PREMIX IV SCH ×3 (01:28→17:31)
[2022-05-26] MEDS: MORPHINE 2 MG/1 ML SYRINGE IV PRN (04:10)
[2022-05-26 04:18] LABS: Basophils % 0.2 % (0.0-0.8); Eosinophils # 0.2 10*3/uL (0.0-0.87); Eosinophils % 1.7 % (0.00-10.9); Hematocrit 29.8 VOL% (42.0-52.0); Hemoglobin 10.2 GM/DL (14.0-18.0); Immature Granulocytes % 0.7 %; Immature Granulocytes Absolute 0.07 #; Lymphocytes # 1.5 10*3/uL (1.4-4.0); Lymphocytes % 15.2 % (21.2-54.2); Mean Corpuscular HGB Conc 34.2 GM/DL (32-36); Mean Corpuscular Volume 91.7 FL (87-102); Mean Platelet Volume 12.5 FL (9.6-12.0); Monocytes # 1.3 10*3/uL (0.11-0.8); Monocytes % 13.5 % (1.7-12.7); Neutrophils % 68.7 % (38.7-73.9); Platelet Count 119 T/CUMM (130-400); Red Blood Count 3.25 MC/CUMM (3.8-5.5); Red Cell Distribution Width 13.5 % (9.3-17.3); White Blood Count 9.9 T/CUMM (4-12)
[2022-05-26 04:43] LABS: Osmolality,Calculated 269.5 MOS/KG (273-304); Potassium 3.6 MMOL/L (3.5-5.1)
[2022-05-26] MEDS: ALBUTEROL 0.63 MG/3 ML NEB RESP TX SCH ×2 (07:20→19:37)
[2022-05-26] MEDS: INSULIN REGULAR 100 UNIT/ML SUBCUT SCH ×4 (07:52→20:34)
[2022-05-26] MEDS: DILTIAZEM CD 120 MG CAPSULE PO SCH ×2 (08:48→20:33)
[2022-05-26] MEDS: MAGNESIUM OXIDE 400 MG TABLET PO SCH ×2 (08:48→20:33)
[2022-05-26] MEDS: APIXABAN 2.5 MG TABLET PO SCH ×2 (08:48→20:33)
[2022-05-26] MEDS: FUROSEMIDE 80 MG TABLET PO SCH ×2 (08:48→15:23)
[2022-05-26] MEDS: ASCORBIC ACID 500 MG TABLET PO SCH ×2 (08:48→20:33)
[2022-05-26] MEDS: METOPROLOL SUCCINATE XL 100 MG TABLET PO SCH (08:48)
[2022-05-26] MEDS: DOCUSATE SODIUM 100 MG CAPSULE PO SCH ×2 (08:48→20:33)
[2022-05-26] MEDS: PRIMIDONE 50 MG TABLET PO SCH ×2 (08:48→20:33)
[2022-05-26] MEDS: GABAPENTIN 100 MG CAPSULE PO SCH ×2 (08:48→20:33)
[2022-05-26] MEDS: POTASSIUM CHLORIDE 20 MEQ TABLET PO SCH ×2 (08:49→20:33)
[2022-05-26] MEDS: PANTOPRAZOLE 40 MG TABLET PO SCH (08:49)
[2022-05-26] MEDS ORDERED: POTASSIUM CHLORIDE 20 MEQ TABLET PO ONE (10:03)
[2022-05-26] MEDS: ASPIRIN EC 81 MG TABLET PO SCH (12:29)
[2022-05-26] MEDS: cefTRIAXone 1,000 MG in SODIUM CHLORIDE 0.9% 100 ML IV SCH (15:24)
[2022-05-26] MEDS: SIMVASTATIN 20 MG TABLET PO SCH (20:33)
[2022-05-26] MEDS: TAMSULOSIN 0.4 MG CAPSULE PO SCH (20:33)
[2022-05-27] MEDS: ALBUTEROL 0.63 MG/3 ML NEB RESP TX SCH ×4 (00:03→12:13)
[2022-05-27] MEDS: CLINDAMYCIN INJ 600 MG/50 ML PREMIX IV SCH ×2 (02:42→08:57)
[2022-05-27 05:17] LABS: Basophils % 0.4 % (0.0-0.8); Eosinophils # 0.2 10*3/uL (0.0-0.87); Eosinophils % 2.2 % (0.00-10.9); Hematocrit 31.5 VOL% (42.0-52.0); Hemoglobin 10.4 GM/DL (14.0-18.0); Immature Granulocytes % 0.8 %; Immature Granulocytes Absolute 0.07 #; Lymphocytes # 1.1 10*3/uL (1.4-4.0); Lymphocytes % 13.4 % (21.2-54.2); Mean Corpuscular Volume 92.9 FL (87-102); Mean Platelet Volume 12.5 FL (9.6-12.0); Monocytes # 1.1 10*3/uL (0.11-0.8); Neutrophils % 70.2 % (38.7-73.9); Platelet Count 150 T/CUMM (130-400); Red Blood Count 3.39 MC/CUMM (3.8-5.5); Red Cell Distribution Width 13.4 % (9.3-17.3); White Blood Count 8.3 T/CUMM (4-12)
[2022-05-27 05:22] LABS: Calcium 8.4 MG/DL (8.5-10.1); Osmolality,Calculated 266.1 MOS/KG (273-304)
[2022-05-27] MEDS: INSULIN REGULAR 100 UNIT/ML SUBCUT SCH ×2 (07:44→11:36)
[2022-05-27] MEDS: METOPROLOL SUCCINATE XL 100 MG TABLET PO SCH (08:57)
[2022-05-27] MEDS: DOCUSATE SODIUM 100 MG CAPSULE PO SCH (08:58)
[2022-05-27] MEDS: GABAPENTIN 100 MG CAPSULE PO SCH (08:58)
[2022-05-27] MEDS: APIXABAN 2.5 MG TABLET PO SCH (08:58)
[2022-05-27] MEDS: MAGNESIUM OXIDE 400 MG TABLET PO SCH (08:58)
[2022-05-27] MEDS: FUROSEMIDE 80 MG TABLET PO SCH (08:58)
[2022-05-27] MEDS: ASCORBIC ACID 500 MG TABLET PO SCH (08:58)
[2022-05-27] MEDS: DILTIAZEM CD 120 MG CAPSULE PO SCH (08:58)
[2022-05-27] MEDS: PANTOPRAZOLE 40 MG TABLET PO SCH (08:58)
[2022-05-27] MEDS: POTASSIUM CHLORIDE 20 MEQ TABLET PO SCH (08:58)
[2022-05-27] MEDS: PRIMIDONE 50 MG TABLET PO SCH (08:58)
[2022-05-27 11:42] VITALS: BP 113/74
[2022-05-27] MEDS: ASPIRIN EC 81 MG TABLET PO SCH (12:12)
== END 2022-05-27 13:15 | disposition swing bed (61) | DRG 640 ==
LOC: N.ED 10:09 → N.EDINP 10:09 → N.TELES 17:46
PROVIDERS: ADMIT Family Medicine; ATTEND Family Medicine

== ENCOUNTER 2022-12-21 12:50 | Observation (INO) ==
[2022-12-21] MEDS ORDERED: ALBUTEROL NEB SOLN 5 MG/ML 20 ML/BOTTLE CONT NEB STA (13:12)
[2022-12-21] MEDS ORDERED: PIPERACILLIN/TAZOBACTAM 3,375 MG in SODIUM CHLORIDE 0.9% 100 ML IV STA (13:43)
[2022-12-21] MEDS ORDERED: DILTIAZEM 50 MG/10 ML VIAL IV STA (13:43)
[2022-12-21 13:44] LABS: Basophils % 0.4 % (0.0-0.8); Eosinophils # 0.1 10*3/uL (0.0-0.87); Hematocrit 39.5 VOL% (42.0-52.0); Hemoglobin 13.4 GM/DL (14.0-18.0); Immature Granulocytes % 0.6 %; Immature Granulocytes Absolute 0.06 #; Lymphocytes # 1.3 10*3/uL (1.4-4.0); Lymphocytes % 13.8 % (21.2-54.2); Mean Corpuscular HGB Conc 33.9 GM/DL (32-36); Mean Corpuscular Volume 94.7 FL (87-102); Mean Platelet Volume 11.5 FL (9.6-12.0); Monocytes # 1.3 10*3/uL (0.11-0.8); Monocytes % 14.1 % (1.7-12.7); Neutrophils % 70.1 % (38.7-73.9); Platelet Count 188 T/CUMM (130-400); Red Blood Count 4.17 MC/CUMM (3.8-5.5); Red Cell Distribution Width 13.8 % (9.3-17.3); White Blood Count 9.29 T/CUMM (4-12)
[2022-12-21] MEDS ORDERED: DILTIAZEM INJ 100 MG in SODIUM CHLORIDE 0.9% 100 ML IV SCH (14:00)
[2022-12-21 14:04] LABS: Albumin 2.9 G/DL (3.4-5.0); Bilirubin,Total 0.5 MG/DL (0.20-1.00); Calcium 9.3 MG/DL (8.5-10.1); Osmolality,Calculated 276.1 MOS/KG (273-304); Potassium 4.6 MMOL/L (3.5-5.1); Total Protein 6.8 G/DL (6.4-8.2)
[2022-12-21] MEDS ORDERED: ONDANSETRON 4 MG/2 ML VIAL IV PRN (15:37)
[2022-12-21] MEDS ORDERED: ACETAMINOPHEN 325 MG TABLET PO PRN (15:37)
[2022-12-21] MEDS ORDERED: SODIUM CHLORIDE 0.9% 1,000 ML IV SCH (15:37)
[2022-12-21] MEDS ORDERED: FUROSEMIDE 40 MG/4 ML VIAL IV ONE (17:13)
[2022-12-21] MEDS: ALBUTEROL 0.63 MG/3 ML NEB RESP TX SCH ×2 (19:00→19:30)
[2022-12-21] MEDS: methylPREDNISolone SOD SUC 125 MG/2 ML VIAL IV SCH (19:34)
[2022-12-21] MEDS: ALBUTEROL 2.5 MG/3 ML NEB RESP TX SCH ×2 (20:39→20:46)
[2022-12-21] MEDS: DOCUSATE SODIUM 100 MG CAPSULE PO SCH (21:18)
[2022-12-21] MEDS: SIMVASTATIN 20 MG TABLET PO SCH (21:18)
[2022-12-21] MEDS: MAGNESIUM OXIDE 400 MG TABLET PO SCH (21:18)
[2022-12-21] MEDS: TAMSULOSIN 0.4 MG CAPSULE PO SCH (21:18)
[2022-12-21] MEDS: GABAPENTIN 100 MG CAPSULE PO SCH (21:18)
[2022-12-21] MEDS: POTASSIUM CHLORIDE 20 MEQ TABLET PO SCH (21:18)
[2022-12-21] MEDS: PRIMIDONE 50 MG TABLET PO SCH (21:18)
[2022-12-21] MEDS: PIPERACILLIN/TAZOBACTAM 3,375 MG in SODIUM CHLORIDE 0.9% 100 ML IV SCH (21:20)
[2022-12-22] MEDS: methylPREDNISolone SOD SUC 125 MG/2 ML VIAL IV SCH ×5 (00:03→23:49)
[2022-12-22] MEDS: ALBUTEROL 0.63 MG/3 ML NEB RESP TX SCH ×2 (01:05→09:31)
[2022-12-22] MEDS: ALBUTEROL 2.5 MG/3 ML NEB RESP TX SCH ×4 (01:06→20:02)
[2022-12-22 05:12] LABS: Osmolality,Calculated 285.1 MOS/KG (273-304); Potassium 4.3 MMOL/L (3.5-5.1)
[2022-12-22] MEDS: PIPERACILLIN/TAZOBACTAM 3,375 MG in SODIUM CHLORIDE 0.9% 100 ML IV SCH ×3 (06:34→21:14)
[2022-12-22] MEDS ORDERED: DILTIAZEM CD 120 MG CAPSULE PO SCH (09:00)
[2022-12-22] MEDS: PRIMIDONE 50 MG TABLET PO SCH ×3 (11:05→21:14)
[2022-12-22] MEDS: METOPROLOL SUCCINATE XL 100 MG TABLET PO SCH (11:05)
[2022-12-22] MEDS: PANTOPRAZOLE 40 MG TABLET PO SCH (11:05)
[2022-12-22] MEDS: GABAPENTIN 100 MG CAPSULE PO SCH ×2 (11:05→21:15)
[2022-12-22] MEDS: FINASTERIDE 5 MG TABLET PO SCH (11:05)
[2022-12-22] MEDS: MULTIVITAMIN (INTRINSIC) CAPSULE PO SCH (11:05)
[2022-12-22] MEDS: FEBUXOSTAT 80 MG TABLET PO SCH (11:05)
[2022-12-22] MEDS: FUROSEMIDE 80 MG TABLET PO SCH ×2 (11:05→17:45)
[2022-12-22] MEDS: DILTIAZEM CD 120 MG CAPSULE PO SCH (11:06)
[2022-12-22] MEDS: APIXABAN 2.5 MG TABLET PO SCH ×2 (11:06→21:15)
[2022-12-22] MEDS: MULTIVITAMIN (CENTRUM) TABLET PO SCH (11:06)
[2022-12-22] MEDS: MAGNESIUM OXIDE 400 MG TABLET PO SCH ×2 (11:06→21:15)
[2022-12-22] MEDS: GLIMEPIRIDE 2 MG TABLET PO SCH (11:06)
[2022-12-22] MEDS: DOCUSATE SODIUM 100 MG CAPSULE PO SCH ×2 (11:06→21:14)
[2022-12-22] MEDS: POTASSIUM CHLORIDE 20 MEQ TABLET PO SCH ×2 (11:06→21:15)
[2022-12-22] MEDS: SIMVASTATIN 20 MG TABLET PO SCH (21:15)
[2022-12-22] MEDS: TAMSULOSIN 0.4 MG CAPSULE PO SCH (21:15)
[2022-12-23] MEDS: ALBUTEROL 2.5 MG/3 ML NEB RESP TX SCH ×2 (04:14→07:25)
[2022-12-23 05:42] LABS: Basophils % 0.1 % (0.0-0.8); Hematocrit 38.9 VOL% (42.0-52.0); Hemoglobin 13.1 GM/DL (14.0-18.0); Immature Granulocytes % 0.8 %; Immature Granulocytes Absolute 0.11 #; Lymphocytes # 0.7 10*3/uL (1.4-4.0); Mean Corpuscular HGB Conc 33.7 GM/DL (32-36); Mean Corpuscular Volume 94.9 FL (87-102); Mean Platelet Volume 11.7 FL (9.6-12.0); Monocytes # 0.3 10*3/uL (0.11-0.8); Monocytes % 2.4 % (1.7-12.7); Neutrophils % 91.7 % (38.7-73.9); Platelet Count 197 T/CUMM (130-400); Red Cell Distribution Width 13.7 % (9.3-17.3); White Blood Count 14.16 T/CUMM (4-12)
[2022-12-23 06:08] LABS: Calcium 9.3 MG/DL (8.5-10.1); Osmolality,Calculated 280.4 MOS/KG (273-304); Potassium 3.6 MMOL/L (3.5-5.1)
[2022-12-23] MEDS: methylPREDNISolone SOD SUC 125 MG/2 ML VIAL IV SCH (06:10)
[2022-12-23] MEDS: PIPERACILLIN/TAZOBACTAM 3,375 MG in SODIUM CHLORIDE 0.9% 100 ML IV SCH (06:10)
[2022-12-23 06:30] LABS: Band Neutrophils 1 % (0-10); Lymphocytes 6 % (20-55); Platelet Estimate Adequate; Total Cells Counted 100
[2022-12-23 08:04] VITALS: BP 135/75
[2022-12-23] MEDS: FINASTERIDE 5 MG TABLET PO SCH (08:41)
[2022-12-23] MEDS: PRIMIDONE 50 MG TABLET PO SCH (08:41)
[2022-12-23] MEDS: FUROSEMIDE 80 MG TABLET PO SCH (08:41)
[2022-12-23] MEDS: METOPROLOL SUCCINATE XL 100 MG TABLET PO SCH (08:41)
[2022-12-23] MEDS: DOCUSATE SODIUM 100 MG CAPSULE PO SCH (08:41)
[2022-12-23] MEDS: FEBUXOSTAT 80 MG TABLET PO SCH (08:41)
[2022-12-23] MEDS: MULTIVITAMIN (CENTRUM) TABLET PO SCH (08:41)
[2022-12-23] MEDS: APIXABAN 2.5 MG TABLET PO SCH (08:41)
[2022-12-23] MEDS: MULTIVITAMIN (INTRINSIC) CAPSULE PO SCH (08:41)
[2022-12-23] MEDS: GABAPENTIN 100 MG CAPSULE PO SCH (08:42)
[2022-12-23] MEDS: DILTIAZEM CD 120 MG CAPSULE PO SCH (08:42)
[2022-12-23] MEDS: GLIMEPIRIDE 2 MG TABLET PO SCH (08:42)
[2022-12-23] MEDS: MAGNESIUM OXIDE 400 MG TABLET PO SCH (08:42)
[2022-12-23] MEDS: POTASSIUM CHLORIDE 20 MEQ TABLET PO SCH (08:42)
[2022-12-23] MEDS: PANTOPRAZOLE 40 MG TABLET PO SCH (08:45)
== END 2022-12-23 11:30 | disposition home or self-care (01) ==
LOC: EDUNIT# → EDBD → N.EDINP 12:50 → N.ED 12:50 → N.TELEN 15:00
PROVIDERS: ADMIT Family Medicine; ATTEND Family Medicine